=== PATIENT | male | born 1990 | race Caucasian/White ===

== ENCOUNTER → 2021-04-26 08:35 | Outpatient (CLI) | payer BC, SELFPAY ==
--- NOTE | ~2021-04-26 | XR_ITS ---
EXAMINATION: XR abdomen/kub 1V EXAM DATE: 04/26/2021 08:50 INDICATION: R10.9 - Unspecified abdominal pain,HX Stones,Lt Flank Pn TECHNIQUE: Frontal projection(s) of the abdomen for interpretation. There is no prior study for karthik linda. FINDINGS: Small left inferior calyceal stones identified, indicated. Moderate amount of colonic stoo l and gas. No dilated small bowel. Bones are unremarkable. IMPRESSION: Left nephrolithiasis. Reviewed, dictated and finalized at location B. [employer] IMPRESSION: Left nephrolithiasis.
== END ==
PROVIDERS: PCP Nurse Practitioner; Visit Provider Nurse Practitioner
DX: R10.9 Unspecified abdominal pain (principal); N20.0 Calculus of kidney
CPT/HCPCS: 74018